=== PATIENT | female | born 1950 | race Caucasian/White ===

== ENCOUNTER → 2016-07-05 | Outpatient (CLI) | payer OTHER ==
[2016-07-05 10:26] LABS: BLOOD UREA NITROGEN 17 mg/dl (7-18); BUN/CREATININE RATIO 18.2 (10-20); CARBON DIOXIDE 27 mmol/L (21-32); CHLORIDE 102 mmol/L (98-107); CREATININE 0.91 mg/dl (0.60-1.20); GLUCOSE 89 mg/dl (70-99); MAGNESIUM 2.2 mg/dl (1.8-2.4); POTASSIUM 4.1 mmol/L (3.5-5.1); SODIUM 136 mmol/L (136-145)
[2016-07-05 10:36] LABS: THYROID STIMULATING HORMONE 0.042 uIu/ml (0.300-4.500)
== END | disposition home or self-care (01) ==
LOC: C.LAB1850 09:03
PROVIDERS: ATTEND Family Medicine
DX: E03.9 Hypothyroidism, unspecified (principal); E55.9 Vitamin D deficiency, unspecified; R25.2 Cramp and spasm

== ENCOUNTER → 2016-09-06 | Outpatient (CLI) | payer OTHER ==
[2016-09-06 10:59] LABS: THYROID STIMULATING HORMONE 0.128 uIu/ml (0.300-4.500)
== END | disposition home or self-care (01) ==
LOC: C.LAB1850 09:22
PROVIDERS: ATTEND Family Medicine
DX: E03.9 Hypothyroidism, unspecified (principal)

== ENCOUNTER → 2016-11-01 | Outpatient (CLI) | payer OTHER ==
[2016-11-01 11:56] LABS: THYROID STIMULATING HORMONE 0.288 uIu/ml (0.300-4.500)
== END | disposition home or self-care (01) ==
LOC: C.LAB1850 09:24
PROVIDERS: ATTEND Family Medicine
DX: E03.9 Hypothyroidism, unspecified (principal)

== ENCOUNTER → 2017-02-21 | Outpatient (CLI) | payer OTHER ==
[2017-02-21 10:51] LABS: THYROID STIMULATING HORMONE 0.7 uIu/ml (0.300-4.500)
== END | disposition home or self-care (01) ==
LOC: C.LAB1850 09:35
PROVIDERS: ATTEND Family Medicine
DX: E55.9 Vitamin D deficiency, unspecified (principal); E03.9 Hypothyroidism, unspecified

== ENCOUNTER → 2017-04-04 | Outpatient (CLI) | payer OTHER ==
--- NOTE | 2017-04-04 15:37 | MAMMOGRAPHY REPORT ---
BILATERAL DIGITAL SCREENING MAMMOGRAM TOMOSYNTHESIS WITH CAD: 04/04/2017 CLINICAL HISTORY: Routine screening. Patient has no complaints. TECHNIQUE: Breast tomosynthesis in addition to standard 2D mammography was performed. Current study was also evaluated with a Computer Aided Detection (CAD) system. COMPARISON: Comparison is made to exams dated: 03/22/2016 mammogram, 01/27/2015 mammogram, 01/21/2014 m ammogram, 01/08/2013 mammogram, and 07/12/2011 mammogram - [facility]. BREAST COMPOSITION: The tissue of both breasts is heterogeneously dense, which may obscure small mas ses. FINDINGS: No suspicious masses, calcifications, or areas of architectural distortion are noted in ei ther breast. There has been no significant interval change compared to prior exams. IMPRESSION: ACR BI-RADS CATEGORY 1: NEGATIVE There is no mammographic evidence of malignancy. A 1 year screening mammogram is recommended. The pa tient will receive written notification of the results. Approximately 10% of breast cancers are not detected with mammography. A negative mammographic report should not delay biopsy if a clinically suggestive mass is present. Iona Burton M.D. /:04/04/2017 13:31:55 Business Unit Controller: Savannah RYAN(Tracy)(M), [facility] letter sent: Normal 1/2 BI-RADS Code: ACR BI-RADS Category 1: Negative
== END | disposition home or self-care (01) ==
LOC: C.MAMM 13:06
PROVIDERS: ATTEND Obstetrics & Gynecology
DX: Z12.31 Encounter for screening mammogram for malignant neoplasm of breast (principal)

== ENCOUNTER → 2017-08-11 | Outpatient (CLI) | payer OTHER | END | disposition home or self-care (01) | LOC: C.MAMM 08:19 | PROVIDERS: ATTEND Family Medicine | DX: Z78.0 Asymptomatic menopausal state (principal); M85.89 Other specified disorders of bone density and structure, multiple sites; M81.0 Age-related osteoporosis without current pathological fracture ==